=== PATIENT | female | born 1985 | race Caucasian/White ===

== ENCOUNTER 2019-07-06 17:24 | Emergency (ER) | payer OTHER, MEDICAID, SELFPAY ==
[2019-07-06 18:06] VITALS: BP 117/75; PULSE 86; RESP 16; TEMP 36.2; O2SAT 100; BMI 22.8
--- NOTE | 2019-07-06 19:40 | ED_ITS ---
HPI - Skin/Abscess/Foreign Bdy <JESSICA Garcia - Last Filed: 07/06/19 20:01> General Chief complaint: Skin/Abscess/Foreign Body Stated complaint: thinks insect bite inner left thigh Time Seen by Provider: 07/06/19 19:22 Source: patient Mode of arrival: ambulatory Limitations: no limitations History of Present Illness HPI narrative: 34-year-old healthy female presents emergency department today complaining of a reddened area to the inner aspect of her left thigh. She states 1 day ago she was lying in bed with a when you open and thought that she felt something by her thigh, however in the morning she did not notice any discoloration or lesions to the area. Today she noticed some redness was concerned that the bite may have been by a spider or brown recluse. She states the area is tender when palpated. She denies pruritus, swelling, drainage, fever, numbness, chest pain, shortness of breath, abdominal pain, nausea, vomiting, or diarrhea. She also states she is allergic to mosquito bites on the often swallow. Review of Systems <JESSICA Garcia - Last Filed: 07/06/19 20:01> Review of Systems Narrative: REVIEW OF SYSTEMS: GENERAL: Denies fever or chills. HENT: Denies head trauma. EYE: Denies double vision or vision loss. CARDIOVASCULAR: Denies syncope. MUSCULOSKELETAL: Denies weakness, or deformities. INTEGUMENTARY: Complains of insect bite to left thigh, see HPI. NEURO: Denies numbness or tingling. PFSH <JESSICA Garcia - Last Filed: 07/06/19 20:01> Medical History No significant medical problems (Acute) Social History Smoking Status: Never smoker Social History Smoking Status: Never smoker Exam <JESSICA Garcia - Last Filed: 07/06/19 20:01> Initial Vital Signs Initial Vital Signs: Vital Signs Temperature 97.2 F L 07/06/19 18:06 Pulse Rate 86 07/06/19 18:06 Respiratory Rate 16 07/06/19 18:06 Blood Pressure 117/75 07/06/19 18:06 Pulse Oximetry 100 07/06/19 18:06 PHYSICAL EXAMINATION: GENERAL: Well groomed, alert, and cooperative. Answers questions promptly and appropriately. Vital signs noted. HENT: Normocephalic, atraumatic. RESPIRATORY: Normal respiratory rate, trachea midline, airway patent. No stridor, nasal flaring or accessory muscle use. MUSCULOSKELETAL: Normal gait and coordination. Equal tone and mass bilaterally. EXTREMITIES: CMS intact. Moves all extremities. SKIN: Warm, dry, soft, appropriate color for ethnicity. 4cm in diameter annular area of light erythema to inner aspect of left thigh. Small indentation noted in the middle most likely representing an insect bite. No increased temperature with palpation, no tenderness, no executed or crusting. No foreign bodies or stingers visualized. NEURO: Alert and Oriented X 3. Good coordination. PSYCH: Appropriate affect and mood. <Shanice Pete MD - Last Filed: 07/07/19 02:19> Initial Vital Signs Initial Vital Signs: Vital Signs Temperature 97.2 F L 07/06/19 18:06 Pulse Rate 86 07/06/19 18:06 Respiratory Rate 16 07/06/19 18:06 Blood Pressure 117/75 07/06/19 18:06 Pulse Oximetry 100 07/06/19 18:06 Course <JESSICA Garcia - Last Filed: 07/06/19 20:01> Vital Signs Vital signs: Vital Signs - 8 hr 07/06/19 18:06 Temperature 97.2 F L Pulse Rate 86 Respiratory Rate 16 Blood Pressure 117/75 Pulse Oximetry 100 <Shanice Pete MD - Last Filed: 07/07/19 02:19> Vital Signs Vital signs: Vital Signs - 8 hr 07/06/19 18:06 Temperature 97.2 F L Pulse Rate 86 Respiratory Rate 16 Blood Pressure 117/75 Pulse Oximetry 100 [facility] - Skin/Abscess/Foreign Bdy <JESSICA Garcia - Last Filed: 07/06/19 20:01> Medical Records Attestation: I reviewed the patient's medical records. [facility] Narrative Medical decision making narrative: The lesion appears to be most likely that of inflammation caused by histamine versus infection such as cellulitis given that the erythema was slight, the annular pattern, lack of increase in warmth of lesion, not excluded a crusting, lack of tenderness, and patient's history of allergic reactions to mosquito bites and other bites. This is most likely likely insect bite or sting given the report of something sting her during the night, no foreign bodies are visualized-no concern for ticks or bee sting in the wound. Strict return precautions given and follow-up instructions discussed. Discharge Plan Departure Patient Disposition: Home Clinical Impression: Insect sting Qualifiers: Encounter type: initial encounter Injury intent: accidental or unintentional Qualified Code(s): T63.481A - Toxic effect of venom of other arthropod, accidental (unintentional), initial encounter Discharge Date/Time: 07/06/19 19:53 Instructions: DI for Insect Bites and Stings Activity Restrictions/Additional Instructions: Thank you for entrusting me with your care today. As discussed, I believe the redness is caused by an insect sting. Please wash the area with soap and water, you may apply hydrocodone to the area 2-4 times a day and then placed a small amount of Neosporin or bacitracin over the area as well. Monitor for signs of infection such as increased redness, pussy discharge, swelling that goes down your leg, fevers, chills--this occurs please return to the walk-in clinic or the emergency department.
== END 2019-07-06 19:53 | disposition home or self-care (01) ==
PROVIDERS: Emergency Provider Nurse Practitioner
DX: T63.481A Toxic effect of venom of other arthropod, accidental (unintentional), initial encounter (principal)
CPT/HCPCS: 99282

== ENCOUNTER → 2020-09-15 09:20 | Outpatient (CLI) | payer OTHER, MEDICAID, SELFPAY ==
[2020-09-15 09:47] LABS: COVID19 -Nasal RAPID Negative (Negative)
== END ==
PROVIDERS: Visit Provider Physician Assistant
DX: Z11.59 Encounter for screening for other viral diseases (principal)
CPT/HCPCS: 87635

== ENCOUNTER → 2021-07-21 14:49 | Outpatient (CLI) | payer OTHER, MEDICAID, SELFPAY ==
[2021-07-21 15:17] LABS: COVID19 -Nasal RAPID Negative (Negative)
== END ==
PROVIDERS: Visit Provider Nurse Practitioner
DX: Z20.822 Contact with and (suspected) exposure to COVID-19 (principal); J31.2 Chronic pharyngitis
CPT/HCPCS: 87070; 87147; 87635; 87880

== ENCOUNTER 2021-07-24 13:22 | Emergency (ER) | payer OTHER, MEDICAID, SELFPAY ==
[2021-07-24 13:27] VITALS: BP 132/78; PULSE 99; RESP 14; TEMP 36.7; O2SAT 99
--- NOTE | 2021-07-24 13:46 | ED.SKABFB ---
HPI - Skin/Abscess/Foreign Bdy General Chief complaint: Skin/Abscess/Foreign Body Stated complaint: LT BREAST PAIN/TIGHTNESS/REDNESS Time Seen by Provider: 07/24/21 13:40 Source: patient Mode of arrival: Ambulatory Limitations: no limitations History of Present Illness HPI narrative: Patient is a 36-year-old female who presents left breast pain and swelling. She noticed it 3 days ago it has increasingly gotten was. She has erythema and pain. No fever or chills. No nipple discharge no family history of breast cancer. Her brought in anything hurts to touch. Related Data Previous Rx's Medication Instructions Recorded sulfamethoxazole 800 1 tab PO BID 10 Days #20 tab 07/24/21 mg-trimethoprim 160 mg tablet (Bactrim DS) Allergies Allergy/AdvReac Type Severity Reaction Status Date / Time No Known Drug Allergies Allergy Verified 07/24/21 13:31 Review of Systems Review of Systems Narrative: GENERAL: Denies chills,fever HEENT: Denies throat pain RESPIRATORY: Denies dyspnea, cough, wheezing CARDIOVASCULAR: Denies chest pain, palpitations GASTROINTESTINAL: Denies nausea, vomiting MUSCULOSKELETAL: Denies extremity pain, injury SKIN: See HPI NEUROLOGIC: Denies weakness, dizziness, headache, numbness 8 point review of systems is negative except for those stated above and HPI Patient History Medical History (Updated 07/24/21 @ 15:24 by Ijeoma Jimenez DO) No significant medical problems Social History Smoking Status: Never smoker Smoking Status: Never smoker alcohol intake frequency: other Substance Use Type: does not use Exam Initial Vital Signs Initial Vital Signs: Vital Signs Temperature 98.0 F 07/24/21 13:27 Pulse Rate 99 H 07/24/21 13:27 Respiratory Rate 14 07/24/21 13:27 Blood Pressure 132/78 07/24/21 13:27 Pulse Oximetry 99 07/24/21 13:27 GENERAL: Well-appearing, well-nourished and in no acute distress. CARDIOVASCULAR: peripheral pulses in tact, cap refill <2 sec RESPIRATORY: No respiratory distress, speaks in full sentences without difficulty EXTREMITIES: Normal range of motion, no clubbing or edema. Neurovascularly intact NEUROLOGICAL: Cranial nerves II through XII grossly intact. Normal gait and speech. SKIN: Left breast erythema edema small fluctuation 7 cm x 4 cm no induration Course Orders Ordered: ED Orders 07/24/21 13:46 US breast LT limited Stat Discontinued Medications Ibuprofen (Ibuprofen 400 Mg Tablet) 800 mg PO NOW ONE Stop: 07/24/21 13:47 Last Admin: 07/24/21 13:55 Dose: 800 mg Documented by: MICHELLE Vital Signs Vital signs: Vital Signs - 8 hr 07/24/21 13:27 07/24/21 15:33 Temperature 98.0 F 98.1 F Pulse Rate 99 H 88 Respiratory Rate 14 17 Blood Pressure 132/78 117/64 Pulse Oximetry 99 99 MDM - Skin/Abscess/Foreign Bdy Imaging Data US breast : Radiologist's Impression: PROCEDURE: US BREAST LT LIMITED ? COMPARISON: None. ? INDICATIONS: LEFT BREAST FOCAL REDNESS, EDEMA; POSSIBLE ABSCESS ? FINDINGS: ? Ultrasound evaluation in the left breast at the 4:00 and 5:00 positions in the area of clinical concern demonstrates no discrete cystic or solid mass.? No loculated fluid collections. ? IMPRESSION: ? 1. No discrete fluid collection or mass identified in the area of clinical concern to suggest an abscess or phlegmon.? Recommend clinical follow-up to demonstrate resolution.? Dictated by: Rik Reza M.D. on 07/24/2021 at 14:55? [facility] Narrative Medical decision making narrative: Patient had sudden onset of erythema on left breast. Possible cyst per special systems technician, but no abscess is seen. She is given Bactrim,. At this time no sign of severe sepsis or significant infection she is afebrile. Recommend outpatient follow-up. Discharge Plan Departure Patient Disposition: Home Clinical Impression: Cellulitis Qualifiers: Site of cellulitis: other site Qualified Code(s): L03.818 - Cellulitis of other sites Instructions: DI for Skin Abscess Activity Restrictions/Additional Instructions: *You have been diagnosed with left breast cellulitis *What to do: At this time there is no drainable abscess. Will start on antibiotics any should start to improve. *Continue to take medications as directed Bactrim 1 tablet twice a day for 10 days--> sent to [facility] Motrin 800 mg every 8 hours if needed for [id number] pain *Follow up with your primary care provider in 2-3 days *Return to ER if you should have increasing redness swelling, pain fevers or any new, worsening or concerning symptoms Prescriptions: New sulfamethoxazole-trimethoprim [Bactrim DS] 800-160 mg tablet 1 tab PO BID 10 Days Qty: 20 RF: 0 Referrals: Chika Hicks MD [Primary Care Provider] -
--- NOTE | 2021-07-24 13:46 | DI.US.S_ITS ---
PROCEDURE: US BREAST LT LIMITED COMPARISON: None. INDICATIONS: LEFT BREAST FOCAL REDNESS, EDEMA; POSSIBLE ABSCESS FINDINGS: Ultrasound evaluation in the left breast at the 4:00 and 5:00 positions in the area of clinical concern demonstrates no discrete cystic or solid mass. No loculated fluid collections. IMPRESSION: 1. No discrete fluid collection or mass identified in the area of clinical concern to suggest an abscess or phlegmon. Recommend clinical follow-up to demonstrate resolution. Dictated by: Rik Reza M.D. on 07/24/2021 at 14:55 Approved by: Rik Reza M.D. on 07/24/2021 at 14:56
[2021-07-24] MEDS: IBUPROFEN 400 MG TABLET 800 MG PO (13:55)
[2021-07-24 15:33] VITALS: BP 117/64; PULSE 88; RESP 17; TEMP 36.7; O2SAT 99
== END 2021-07-24 15:34 | disposition home or self-care (01) ==
PROVIDERS: Emergency Provider Emergency Medicine; PCP Family Medicine
DX: N61.0 Mastitis without abscess (principal)
CPT/HCPCS: 76642; 99283

== ENCOUNTER 2021-08-03 04:33 | Emergency (ER) | payer OTHER, MEDICAID, SELFPAY ==
[2021-08-03 04:44] VITALS: BP 133/74; PULSE 104; RESP 18; TEMP 36.6; O2SAT 97; BMI 25.9
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
[2021-08-03] MEDS: diphenhydrAMINE 25 MG TABLET 50 MG PO (04:50)
[2021-08-03] MEDS: predniSONE 20 MG TABLET 60 MG PO (04:50)
== END 2021-08-03 04:59 | disposition home or self-care (01) ==
PROVIDERS: Emergency Provider Emergency Medicine; PCP Family Medicine
DX: R21 Rash and other nonspecific skin eruption (principal); T50.905A Adverse effect of unspecified drugs, medicaments and biological substances, initial encounter
CPT/HCPCS: 99283

== ENCOUNTER → 2021-12-14 18:16 | Outpatient (CLI) | payer OTHER, MEDICAID, SELFPAY ==
--- NOTE | 2021-12-14 18:19 | DI.RAD.S_ITS ---
PROCEDURE: XR TIBIA FIBULA LT 2V INDICATIONS: left lower leg pain TECHNIQUE: 2 views of the tibia and fibula were acquired. COMPARISON: None. FINDINGS: Bones: No fractures or dislocations. Sclerotic foci in the proximal and distal tibia, likely reflecting bone islands. Soft tissues: No suspicious soft tissue calcifications or masses. IMPRESSION: No acute osseous abnormality. Dictated by: Oliver Brito M.D. on 12/14/2021 at 18:48 Approved by: Oliver Brito M.D. on 12/14/2021 at 18:48
== END ==
PROVIDERS: PCP Family Medicine; Referring Provider Nurse Practitioner Family; Visit Provider Nurse Practitioner Family
DX: M79.662 Pain in left lower leg (principal)
CPT/HCPCS: 73590

== ENCOUNTER 2023-09-05 07:34 | Emergency (ER) | payer OTHER, MEDICAID, SELFPAY ==
[2023-09-05 07:35] VITALS: BP 134/83; PULSE 96; RESP 18; TEMP 36.6; O2SAT 100; BMI 24.0
--- NOTE | 2023-09-05 07:46 | ED.GENADULT ---
HPI - General Adult General Chief complaint: Neuro Symptoms/Deficit Stated complaint: thinks she had a mini stroke T-3 Time Seen by Provider: 09/05/23 07:37 Source: patient Mode of arrival: Ambulatory Limitations: no limitations History of Present Illness HPI narrative: Patient is a 38-year-old female who 3 days ago had a less than 10 minute episode where she states that she felt like she could not say any words. States that she felt like she knew the words that she wanted to say but could not actually say them. She did not notice any other symptoms at the time. She did not come in to be evaluated. Her symptoms completely resolved. Over the past couple days she has had other symptoms to include some lightheadedness and a slight headache which is what prompted her to come to the emergency department today. She is never had any symptoms like this in the past. She is not having chest pain, shortness of breath, abdominal pain, nausea or vomiting. No vision changes. No extremity changes. Related Data Previous Rx's Medication Instructions Recorded prednisone 20 mg tablet 40 mg (2 x 20 mg) PO DAILY #6 tabs 08/03/21 Allergies Allergy/AdvReac Type Severity Reaction Status Date / Time sulfamethoxazole Allergy Intermediate Hives Verified 09/20/22 18:18 [From ] trimethoprim [From ] Allergy Intermediate Hives Verified 09/20/22 18:18 Review of Systems Review of Systems ROS Unobtainable: All systems reviewed & are unremarkable except as noted in HPI and below Patient History Medical History (Updated 09/05/23 @ 08:48 by Sam Tapia DO) No significant medical problems Social History Smoking Status: Never smoker Smoking Status: Never smoker alcohol intake frequency: other Substance Use Type: does not use Exam HENMT Head: normal to inspection and normocephalic Eyes General: Yes appearance normal, both eyes and all related structures Resp Effort & Inspection: normal respiratory effort Auscultation: clear to auscultation bilaterally Cardio Rate: regular rate Rhythm: regular rhythm GI Inspection: normal to inspection and non-distended Skin General: no rashes or lesions noted Neuro General: patient alert, patient awake, patient oriented x3 and moves all extremities Cranial Nerves: CN's II-XI intact bilaterally Cognition: normal cognition Speech: speech normal Gait: normal gait Sensory Exam: no sensory deficits noted Extrem General: normal to inspection and capillary refill normal Scores ABCD2 Age >= 60 years: no Initial BP. Either SBP >= 140 or DBP >= 90.: no Clinical features of the TIA: speech disturbance without weakness Duration of symptoms: < 10 minutes History of diabetes: no ABCD2 Score: 1 GCS [place] coma scale eye opening: Spontaneous [place] coma scale verbal response: Orientated [place] coma scale motor response: Obey commands Siv[place]umar coma scale total score: 15 NIH Stroke Scale Level of Conciousness: Alert, keenly responsive Ask month/age: Answers both questions correctly. Open/close eyes, close hand: Performs both tasks correctly Best gaze horizontal: Normal Visual ni: No visual loss Facial palsy: Normal symetrical movement Left arm drift: No drift for full 10 sec Right arm drift: No drift for full 10 sec Left leg drift: No drift for full 5 sec Right leg drift: No drift for full 5 sec Limb ataxia: Absent Sensory on face/arms/legs: Normal, no sensory loss Best language: No aphasia, normal Dysarthria: Normal Extinction or inattention: No abnormality Total NIH Stroke scale score: 0 Course Orders Ordered: ED Orders 09/05/23 07:45 EKG-12 Lead Stat 09/05/23 07:50 CT head/brain wo con Stat 09/05/23 08:02 Complete Blood Count AUTO DIFF Stat Comprehensive Metabolic Panel Stat Lipase Stat Urine Microscopic Stat Medical Decision Making Lab Data 09/05/23 08:02 09/05/23 08:02 Labs: Lab Results 09/05/23 Range/Units 08:02 WBC 7.1 (4.5-11.0) X10^3/uL RBC 5.13 (4.0-5.2) X10^6/uL Hgb 13.8 (12.0-16.0) g/dL Hct 40.7 (36-46) % MCV 79.4 L (80-100) fL MCH 26.9 (26-34) PG MCHC 33.9 (30-36) % RDW 13.7 (11.6-14.8) % Plt Count 306 (150-400) X10^3/uL Neut % (Auto) 61.2 (50-75) % Lymph % (Auto) 25.3 (25-40) % [place] % (Auto) 8.8 (3-14) % Eos % (Auto) 3.3 (2-4) % Baso % (Auto) 1.4 (0-2) % Neut # (Auto) 4300 (4678-7904) /uL Lymph # (Auto) 1800 (9024-1042) /uL [place] # (Auto) 600 (0-900) /uL Eos # (Auto) 200 (0-450) /uL Baso # (Auto) 100 (0-100) /uL Sodium 138 (137-145) mmol/L Potassium 3.3 L (3.4-5.1) mmol/L Chloride 104 (98-107) mmol/L Carbon Dioxide 26 (22-32) mmol/L BUN 11 (7-17) mg/dL Creatinine 0.83 (0.52-1.04) mg/dL Estimated GFR > 60 (>60) mL/min BUN/Creatinine Ratio 13.3 (6-22) Glucose 76 (70-100) mg/dL Calcium 9.8 (8.4-10.2) mg/dL Total Bilirubin 1.2 (0.2-1.3) mg/dL AST 25 (14-36) IU/L ALT 27 (<35) IU/L Alkaline Phosphatase 59 (38-126) U/L Total Protein 7.7 (6.3-8.2) g/dL Albumin 4.4 (3.5-5.0) g/dL Globulin 3.3 (1.7-4.1) g/dL Albumin/Globulin Ratio 1.3 (1.0-2.8) Lipase 92 (23-300) U/L Urine Dip Bedside Urine Glucose Negative Bedside Urine Bilirubin - Negative Bedside Urine Ketone - Negative Urine Specific [place] 1.020 Bedside Urine Occult Blood +/- Bedside Urine pH 6.0 Bedside Urine Protein - Negative Bedside Urine Urobilinogen - Negative Bedside Urine Nitrite - Negative Bedside Urine Leukocytes +/- 15 Esterase Point of care testing: Urine Dip Bedside Urine Glucose Negative Bedside Urine Bilirubin - Negative Bedside Urine Ketone - Negative Urine Specific [place] 1.020 Bedside Urine Occult Blood +/- Bedside Urine pH 6.0 Bedside Urine Protein - Negative Bedside Urine Urobilinogen - Negative Bedside Urine Nitrite - Negative Bedside Urine Leukocytes +/- [address] scan - head: Radiologist's Impression: PROCEDURE: CT HEAD/BRAIN WO CON INDICATIONS: Probable TIA TECHNIQUE: Noncontrast 4.5 mm thick angled axial sections acquired from the foramen magnum to the vertex, with coronal and sagittal reformats. For radiation dose reduction, the following was used: automated exposure control, adjustment of mA and/or kV according to patient size. COMPARISON: None. FINDINGS: Image quality: Excellent. CSF spaces: Basal cisterns are patent. No extra-axial fluid collections. Ventricles are normal in size and shape. Brain: No midline shift. No intracranial masses or hemorrhage. [place]-white matter interface is normal. Skull and face: Calvarium and visualized facial bones are intact, without suspicious lesions. Sinuses: Visualized sinuses and mastoids are clear. IMPRESSION: No acute intracranial process MDM Narrative Medical decision making narrative: Patient's workup here in the emergency department is very reassuring. She is not currently having any symptoms. The only thing that would make me question TIA is her age however the symptoms that she described upon presentation would be consistent with a TIA. I did discuss this with her. She has a low risk ABCD2 score. Has a negative NIH score. Will have the patient contact her primary doctor for a follow-up to discuss any potential further workup to include echocardiogram, MRI or potentially even medication changes. She is not hypertensive. She was given return precautions. She expressed understanding and agreement. Discharge Plan Departure Patient Disposition: Home Clinical Impression: Brain TIA Instructions: DI for Transient Ischemic Attack Activity Restrictions/Additional Instructions: I recommend that you contact your primary doctor today for a follow-up to discuss any potential further testing to include the indications for a MRI or echocardiogram. Return to the emergency department for new or worsening symptoms. Prescriptions: No Action prednisone 20 mg tablet 40 mg PO DAILY Qty: 6 0RF Referrals: Dylan Hicks MD [Primary Care Provider] - Stand Alone Forms: Patient Portal/API
--- NOTE | 2023-09-05 07:50 | DI.CT.S_ITS ---
PROCEDURE: CT HEAD/BRAIN WO CON INDICATIONS: Probable TIA TECHNIQUE: Noncontrast 4.5 mm thick angled axial sections acquired from the foramen magnum to the vertex, with coronal and sagittal reformats. For radiation dose reduction, the following was used: automated exposure control, adjustment of mA and/or kV according to patient size. COMPARISON: None. FINDINGS: Image quality: Excellent. CSF spaces: Basal cisterns are patent. No extra-axial fluid collections. Ventricles are normal in size and shape. Brain: No midline shift. No intracranial masses or hemorrhage. [place]-white matter interface is normal. Skull and face: Calvarium and visualized facial bones are intact, without suspicious lesions. Sinuses: Visualized sinuses and mastoids are clear. IMPRESSION: No acute intracranial process Dictated by: Charles Butcher M.D. on 09/05/2023 at 8:17 Approved by: Charles Butcher M.D. on 09/05/2023 at 8:18
[2023-09-05 08:21] LABS: Add Manual Diff / Slide Review NO; Basophils Absolute Auto 100 /uL (0-100); Basophils Percent Auto 1.4 % (0-2); Eosinophils Absolute Auto 200 /uL (0-450); Eosinophils Percent Auto 3.3 % (2-4); Hematocrit 40.7 % (36-46); Hemoglobin 13.8 g/dL (12.0-16.0); Lymphocytes Absolute Auto 1800 /uL (1100-4500); Lymphocytes Percent Auto 25.3 % (25-40); Mean Corpuscular HGB Conc 33.9 % (30-36); Mean Corpuscular Hemoglobin 26.9 PG (26-34); Mean Corpuscular Volume 79.4 fL (80-100); Monocytes Absolute Auto 600 /uL (0-900); Monocytes Percent Auto 8.8 % (3-14); Neutrophils Absolute Auto 4300 /uL (1500-7000); Neutrophils Percent Auto 61.2 % (50-75); Platelet Count 306 X10^3/uL (150-400); Red Blood Cell Count 5.13 X10^6/uL (4.0-5.2); Red Cell Distribution Width 13.7 % (11.6-14.8); White Blood Cell Count 7.1 X10^3/uL (4.5-11.0)
[2023-09-05 08:37] LABS: Alanine Aminotransferase 27 IU/L (<35); Albumin 4.4 g/dL (3.5-5.0); Albumin Globulin Ratio 1.3 (1.0-2.8); Alkaline Phosphatase 59 U/L (38-126); Aspartate Aminotransferase 25 IU/L (14-36); BUN Creatinine Ratio 13.3 (6-22); Bilirubin Total 1.2 mg/dL (0.2-1.3); Blood Urea Nitrogen 11 mg/dL (7-17); Calcium 9.8 mg/dL (8.4-10.2); Carbon Dioxide 26 mmol/L (22-32); Chloride 104 mmol/L (98-107); Estimated Glomerular Filt Rate > 60 mL/min (>60); Globulin 3.3 g/dL (1.7-4.1); Glucose 76 mg/dL (70-100); HEMOLYSIS < 15 (0-50); Lipase 92 U/L (23-300); Potassium 3.3 mmol/L (3.4-5.1); Sodium 138 mmol/L (137-145); Total Protein 7.7 g/dL (6.3-8.2)
[2023-09-05 08:49] LABS: Bacteria Urine Many (>30); Culture Indicated Urine Specimen Cultured; RBC Urine None Seen (0-5/HPF); Squamous Epithelial Cell Urine 10-30 /HPF (0-5/HPF); WBC Urine 1-5/HPF (0-5/HPF)
--- NOTE | 2023-09-05 08:52 | PC.NURSE ---
Patient stated that on Sunday she was unable to speak for a moment. She could see the words but was unable to speak. She she did not have weakness or dizzyness, or facial drooping that she could appreciate and shortly after her symptoms resolved. Today she stated that she had a moment of head pressure in her right temporal area and shortness of breathe but it quickly resolved. She was denies a history of stroke or seizures.
--- NOTE | 2023-09-05 09:23 | PC.NURSE ---
patient stated on her NIH stroke scale that her left side is not as sharp as her right side when using a blunt 18ga fill needle to assess sensation.
[2023-09-05 10:05] VITALS: BP 106/69; PULSE 57; RESP 18; O2SAT 100
== END 2023-09-05 10:05 | disposition home or self-care (01) ==
PROVIDERS: Emergency Provider Emergency Medicine; PCP Family Medicine
DX: G45.9 Transient cerebral ischemic attack, unspecified (principal)
CPT/HCPCS: 36415; 70450; 80053; 81003; 81015; 83690; 85025; 87086; 99284